=== PATIENT | male | born 1980 | race African-American/Black ===

== ENCOUNTER 2017-02-11 00:46 | Emergency (ER) | payer SELFPAY ==
[~2017-02-11] VITALS: Ht 175.3 cm; Wt 90.0 kg
[2017-02-11 06:58] VITALS: BP 118/73
== END 2017-02-11 06:58 | disposition home or self-care (01) ==
LOC: ER 00:46
DX: F10.129 Alcohol abuse with intoxication, unspecified (principal)
CPT/HCPCS: 36415; 99283; G0482